=== PATIENT | female | born 1950 | race American Indian/Alaskan Native ===

== ENCOUNTER 2016-03-05 05:54 | Day surgery (SDC) | payer MEDICARE ==
--- NOTE | 2016-03-02 10:20 | Anesthesia Consultation ---
Anesthesia Consult and Med Hx Date of service: 03/02/16 - Airway Anesthetic Teeth Evaluation: Poor ROM Head & Neck: Adequate Mental/Hyoid Distance: Adequate Mallampati Class: Class II Intubation Access Assessment: Probably Good - Pulmonary Exam CTA: Yes - Cardiac Exam Cardiac Exam: RRR - Pre-Operative Health Status ASA Pre-Surgery Classification: ASA4 Proposed Anesthetic Plan: General - Pulmonary Hx Smoking: Yes (STOPPED X 2 MONTHS-1/2PPD X 20 YRS) Hx Asthma: Yes Hx Respiratory Symptoms: Yes (history of lung CA. partial lung resection on left side) SOB: Yes Hx Sleep Apnea: No (ZAIDA PRE SCREEN LOW RISK) - Cardiovascular System Hx Hypertension: Yes (X 20 YRS) - Central Nervous System CVA: Yes (STATES "NO DEFICIT" , BUT WORDS SLURRED) Hx Back Pain: Yes (NECK PAIN TO LEFT ARM) - Gastrointestinal Hx Ulcer: Yes - Hematic Hx Anemia: Yes Hx Sickle Cell Disease: No (SC TRAIT ONLY) - Other Systems Hx Cancer: Yes (X 3 SITES, lung(left), uterine, breast(left))
[2016-03-02 10:31] LABS: Alanine Aminotransferase 36 units/L (7-56); Albumin/Globulin Ratio 1.1 %; Alkaline Phosphatase 89 units/L (35-129); Anion Gap 17 mmol/L; BUN/Creatinine Ratio 16.66; Bilirubin,Total 0.6 mg/dL (0.1-1.2); Blood Urea Nitrogen 15 mg/dL (7-17); Calcium 9.2 mg/dL (8.4-10.2); Carbon Dioxide 24 mmol/L (22-30); Chloride 101.4 mmol/L (98-107); Glucose 77 mg/dL (65-100); Hematocrit 34.6 % (30.3-42.9); Hemoglobin 11.2 gm/dl (10.1-14.3); Mean Corpuscular HGB Conc 32 % (30-34); Mean Corpuscular Volume 74 fl (79-97); Platelet Count 242 K/mm3 (140-440); Red Blood Count 4.66 M/mm3 (3.65-5.03); Red Cell Distribution Width 17.2 % (13.2-15.2); Sodium 136 mmol/L (137-145); Total Protein 7.7 g/dL (6.3-8.2); White Blood Count 4.3 K/mm3 (4.5-11.0)
[2016-03-02 10:32] LABS: Mean Corpuscular Hemoglobin 24 pg (28-32)
[2016-03-02 10:40] LABS: Potassium TNR mmol/L (3.6-5.0)
[2016-03-02 11:16] LABS: Blastocytes % (Manual) 0 %
[2016-03-02 11:17] LABS: Acanthocytes 2+; Anisocytosis 1+; Burr Cells 1+; Diff Status Complete; Elliptocytes 1+; Helmet Cells Rare; Hypochromasia 1+; Microcytosis 1+; Ovalocytes 1+; Poikilocytosis 1+; Schistocytes Few
[2016-03-05] MEDS ORDERED: TRANSDERM-SCOP TD NR (06:00)
[2016-03-05] MEDS ORDERED: NACL 0.9% 1000 ML 1,000 ML IV SCH (06:00)
[2016-03-05] MEDS ORDERED: VERSED IV NR (06:00)
[2016-03-05] MEDS ORDERED: PEPCID PO NR (06:00)
[2016-03-05] MEDS ORDERED: SUBLIMAZE IV NR (06:30)
[2016-03-05] MEDS ORDERED: DILAUDID IV PRN (06:31)
[2016-03-05] MEDS ORDERED: NORCO 5/325 PO PRN (06:31)
[2016-03-05] MEDS ORDERED: ZOFRAN IV PRN (06:31)
[2016-03-05] MEDS ORDERED: DIPRIVAN 10 MG/ML IV ONE (07:01)
[2016-03-05] MEDS ORDERED: SUBLIMAZE ONE (07:02)
[2016-03-05] MEDS ORDERED: XYLOCAINE MPF 2% ONE (07:06)
[2016-03-05 07:22] LABS: Alanine Aminotransferase 23 units/L (7-56); Albumin 3.7 g/dL (3.9-5); Albumin/Globulin Ratio 1.2 %; Alkaline Phosphatase 77 units/L (35-129); Anion Gap 15 mmol/L; Bilirubin,Total 0.5 mg/dL (0.1-1.2); Blood Urea Nitrogen 15 mg/dL (7-17); Calcium 8.9 mg/dL (8.4-10.2); Carbon Dioxide 25 mmol/L (22-30); Chloride 102.3 mmol/L (98-107); Glucose 84 mg/dL (65-100); Potassium 4.2 mmol/L (3.6-5.0); Sodium 138 mmol/L (137-145); Total Protein 6.7 g/dL (6.3-8.2)
[2016-03-05] MEDS ORDERED: ZEMURON IV ONE (07:57)
[2016-03-05] MEDS ORDERED: XYLOCAINE 1% 20 mL ONE (08:00)
[2016-03-05] MEDS ORDERED: MARCAINE-EPI 0.5%-1:200,000 INFILTRATI ONE (08:00)
[2016-03-05] MEDS ORDERED: ANCEF/STERILE WATER 2 GM/20 ML IV NR (08:00)
[2016-03-05] MEDS ORDERED: BLOXIVERZ ONE (08:12)
[2016-03-05] MEDS ORDERED: ROBINUL ONE (08:13)
[2016-03-05] MEDS ORDERED: ZOFRAN ONE (08:14)
[2016-03-05] MEDS ORDERED: ADRENALIN IV ONE (08:15)
[2016-03-05] MEDS ORDERED: NACL 0.9% IR ONE ×2 (08:16)
--- NOTE | 2016-03-05 09:07 | Short Stay Summary ---
Short Stay Documentation - Allergies and Medications Current Medications: Allergies Iodinated Contrast Media - IV Dye Allergy (Verified 03/01/16 13:51) Shortness of Breath Home Medications Medication Instructions Recorded Confirmed Last Taken Type AtorvaSTATin [Lipitor] 20 mg PO QHS 03/02/16 03/05/16 03/04/16 21:00 History HYDROcodone/APAP 7.5-325 [Adkins 1 tab PO PRN PRN 03/02/16 03/05/16 03/04/16 20: 00 History 7.5-325 mg TAB] Ipratropium/Albuterol Sulfate 1 spray IH PRN PRN 03/02/16 03/05/16 03/04/16 21: 00 History [Combivent Respimat] Lisinopril [Zestril] 20 mg PO QDAY 03/02/16 03/05/16 03/05/16 05:00 History Multivit-Min/Iron/Folic/Lutein 1 tab PO DAILY 03/02/16 03/05/16 03/04/16 09:00 History [Centrum Silver Women Tablet] Zolpidem [Ambien] 5 mg PO QHS PRN 03/02/16 03/05/16 03/04/16 21:00 History traMADol [Ultram] 50 mg PO Q6HR PRN 03/02/16 03/05/16 03/04/16 20:00 History oxyCODONE /ACETAMINOPHEN [Percocet 1 - 2 tab PO Q4HR PRN #30 tab 03/05/16 Unknown Rx 5/325] Active Medications Acetaminophen/Hydrocodone Bitart (Adkins 5/325) 2 each PO ONCE PRN PRN Reason: Pain, Moderate (4-6) Stop: 03/05/16 16:00 Cefazolin Sodium (Ancef/Sterile Water 2 Gm/20 Ml) 2 gm IV PREOP NR Stop: 03/05/16 23:59 Famotidine (Pepcid) 20 mg PO PREOP NR Stop: 03/05/16 23:59 Last Admin: 03/05/16 06:35 Dose: 20 mg Fentanyl (Sublimaze) 100 mcg IV ONCE NR Stop: 03/05/16 23:59 Last Admin: 03/05/16 06:50 Dose: 50 mcg Hydromorphone HCl (Dilaudid) 0.5 mg IV Q10MIN PRN PRN Reason: Pain , Severe (7-10) Stop: 03/05/16 18:00 Sodium Chloride (Nacl 0.9% 1000 Ml) 1,000 mls @ 100 mls/hr IV DIRECT STIVEN Last Admin: 03/05/16 06:40 Dose: 100 mls/hr Midazolam HCl (Versed) 2 mg IV PREOP NR Stop: 03/05/16 23:59 Last Admin: 03/05/16 06:50 Dose: 1 mg Ondansetron HCl (Zofran) 4 mg IV ONCE PRN PRN Reason: Nausea And Vomiting Stop: 03/05/16 18:00 Scopolamine (Transderm-Scop) 1 each TD PREOP NR Stop: 03/08/16 05:59 Last Admin: 03/05/16 06:35 Dose: 1 each - Brief post op/procedure progress note Date of procedure: 03/05/16 Pre-op diagnosis: persistent left shoulder pain, AC joint arthritis, partial rotator cuff tea Post-op diagnosis: other (persistent left shoulder pain, AC joint arthritis, partial rotator cuff tear, extensive subacromial bursitis, degenerative tear anterior and superior labrum) Procedure: left shoulder arthroscopy, subaromial decompression, distal clavicle excision, debriedment of extensive subacromial bursitis, debriedment of partial rotator cuff tear, debriedment of degenerative wear of anterior and superior labrum Anesthesia: GETA Findings: as above Surgeon: LONI LEY Estimated blood loss: minimal Pathology: none Condition: stable - Hospital course Hospital course: stable - Disposition Condition at discharge: Stable Disposition: DISCHARGED TO HOME OR SELFCARE Short Stay Discharge Plan Prescriptions: oxyCODONE /ACETAMINOPHEN [Percocet 5/325] 1 - 2 tab PO Q4HR PRN #30 tab PRN Reason: Analgesia
[2016-03-05] MEDS: LOPRESSOR IV NR (09:26)
--- NOTE | 2016-03-05 10:17 | Post Anesthesia Evaluation ---
- Post Anesthesia Evaluation Patient Participated: Yes Airway Patent: Yes Stable Respiratory Function: Yes Temp > 96.8F: Yes Pain Manageable: Yes (pain free in PACU) Adequeate Hydration: Yes Anesthesia Complications: No Block Receding Appropriately: Not Applicable
--- NOTE | 2016-03-05 10:17 | Anesthesia Day of Surgery ---
Anesthesia Day of Surgery - Day of Surgery Patient Examined: Yes Patient H&P Reviewed: Yes Patient is NPO: Yes
[2016-03-05 10:36] VITALS: BP 163/84
[2016-03-05] MEDS ORDERED: PERCOCET 5/325 PO NR (10:52)
--- NOTE | 2016-03-05 12:50 | Operative Report ---
PREOPERATIVE DIAGNOSES: Persistent left shoulder pain, acromioclavicular joint arthritis, partial thickness rotator cuff tear, possible anterior labral tear. POSTOPERATIVE DIAGNOSES: Persistent left shoulder pain, advanced acromioclavicular joint arthritic changes causing severe impingement upon the rotator cuff, degenerative wear/tearing of the anterior and superior labrum, extensive subacromial bursitis, partial thickness articular-sided rotator cuff tear involving the supraspinatus tendon. OPERATIVE PROCEDURE: Left shoulder arthroscopy, subacromial decompression, distal clavicle excision, debridement of extensive subacromial bursitis, debridement of degenerative wear/tearing of the anterior and superior labrum, debridement of partial thickness articular-sided rotator cuff tear involving the supraspinatus tendon. SURGEON: Fred Martin MD CAN INSPECTOR: Madisyn Bailey CSA. ANESTHESIA: General plus interscalene block to the operative left upper extremity. ESTIMATED BLOOD LOSS: Minimal, less than 50 mL. OPERATIVE SPECIMEN: None. OPERATIVE COMPLICATIONS: None. OPERATIVE INSTRUMENTS/HARDWARE: None. OPERATIVE HISTORY AND PHYSICAL: This is a 65-year-old female who is right-hand dominant, who has had persistent progressively worsening left shoulder pain for several months' time. The pain was markedly worsening despite excessive nonoperative treatment that was markedly limiting her day-to-day activities. MRI scan was performed, which was positive for acromioclavicular joint arthritic changes, partial rotator cuff tear, possible anterior labral tear. The patient's MRI findings and diagnosis were discussed at length. Treatment alternatives were discussed, surgical and nonsurgical including risks and benefits of both. After a long lengthy discussion, the patient opted to proceed with operative intervention. This would entail a left shoulder arthroscopy, subacromial decompression, distal clavicle excision, possible rotator cuff repair, and surgery as indicated. The risk of which were discussed to include but not exclusive of infection, blood loss, nerve damage, loss of range of motion, and persistent pain. Again, the patient understood all of her questions answered and she wished to proceed with operative intervention. OPERATIVE PROCEDURE: The patient was seen in the preoperative chow room area, at which point informed consent was reviewed and appropriate left upper extremity was identified and then marked. The patient was then evaluated by Anesthesia and then interscalene block was performed. After confirmation of adequate analgesia of the left upper extremity, the patient was then brought back to the operating room and placed supine on a standard operating table. At which point, general anesthesia was administered and endotracheal tube was inserted. After confirmation of appropriate general anesthesia and checking appropriate placement of the endotracheal tube, we then made sure that all bony prominences were well padded. The patient was placed in thigh high SCD pumps to bilateral lower extremities. Padding was placed ____ bilateral thighs, placed in slight flexion at the hips and knees, making sure the popliteal fossa was free and clear. The heels were well padded. The patient was sat up in beach chair position using a beach chair position, which was already in place and her head was secured in a nice neutral position. Following that, the right upper extremity was then secured in neutral position as well. The left upper extremity was then examined under anesthesia. The patient was seen to have full range of motion without any gross evidence of instability. Following examination under anesthesia, the left upper extremity was then prepped and draped in the usual sterile fashion. After prepping and draping, a timeout was called and appropriate left upper extremity was identified, which again had been marked in the preoperative holding room area. We began our procedure by first making a standard posterior portal with #15 blade. Once the portal was established, the cannula with the blunt trocar was inserted into the intra-articular aspect of the glenohumeral joint. This went without difficulty or damage to articular cartilage. Once in place, arthroscopic camera was immediately placed in the anterior aspect of shoulder joint, we established anterior portal by first inserting an 18 gauge spinal needle between subscap and biceps tendon under direct arthroscopic visualization. Once confirmed to be in appropriate position, a 15 blade was then used to establish anterior portal. Once the portal was established, a blunt trocar was inserted via the port site. Following that, an arthroscopic probe, we began our diagnostic arthroscopy in the anterior aspect of the shoulder joint. The patient seen to have normal subscapularis tendon. A normal middle glenohumeral ligament, which was seen to be intact and stable when probed. Inspection of the glenohumeral joint showed there to be mild grade 1 articular cartilage of the central aspect of the glenoid. There was degenerative wear/tearing of the anterior and superior labrum. This was gently debrided using a 4.0 meniscal shaver. The attachment site; however, was seen to be intact and stable when probed. The posterior labrum was seen to be intact and stable when probed. Inspection of the axillary recess showed there were no loose bodies present. Inspection of the rotator cuff showed to be a partial thickness tearing of the supraspinatus tendon accomplished approximately 10% width of the tendon. This was gently debrided using a 4.0 meniscal shaver. Following this, the arthroscopic pump was turned off to make sure there was good hemostasis and once this was confirmed, the ____ fluid was suctioned from the glenohumeral joint using the arthroscopic cannula. Following this, all the arthroscopic instrumentation was removed from the glenohumeral joint and then placed in the subacromial space. Once in the subacromial space, we saw there was severe extensive subacromial bursitis. A third incision was made in the lateral aspect of the shoulder in line with lateral distal clavicle away from the axillary nerve. We performed debridement of the extensive subacromial bursitis using the 4.0 meniscal shaver and hemostasis was achieved with the Arthrocare ablation wand. Once completed, the arm was placed to full range of motion. We saw there was severe impingement of the rotator cuff upon the undersurfaces of both the acromion and the distal clavicle. The soft tissue was then removed from the surface of the acromion using the Arthrocare ablation wand and then using the 4.0 hooded barrel bur carried out a subacromial decompression going from inferior to superior, posterior and anterior making sure I did not leave any residual anterior hook. The coracoacromial ligament was also seemed to be markedly pathologic in thickening and caused a significant impingement and therefore, it was taken down, with careful attention to cauterize the acromial branch of the thoracoacromial artery. I turned our attention to the distal clavicle which was also seemed to be arthritic and contributing to impingement and a 4.0 hooded barrel bur was used to carry out distal clavicle excision here as well. Once completed, the arms again placed to full range of motion. I saw there was no further impingement of the rotator cuff upon undersurfaces of acromion or distal clavicle. I then inspected the bursal side of the rotator cuff that was seen to be intact and stable when probed. The arthroscopic pump was then turned off making sure there was good hemostasis. Once this was confirmed, ____ fluid was suctioned from the shoulder using the arthroscopic cannula. Following this, all the arthroscopic instrumentation was removed. The three portal sites were closed with 3-0 nylon in simple fashion. Adaptic, 4 x 4, ABD was applied along a sling with abduction pillow. The patient was sat down from the beach chair in a supine position, was awakened from general anesthesia without complications and taken to the recovery room in stable condition. Standard postoperative orders were written. [facility]# [id number] SAVANAH/TIERRA
== END 2016-03-05 11:30 | disposition home or self-care (01) ==
LOC: OR 05:54 → EDSEX 07:30 → OR 11:30
PROVIDERS: ATTEND Orthopaedic Surgery
DX: S46.012A Strain of muscle(s) and tendon(s) of the rotator cuff of left shoulder, initial encounter (principal); M19.012 Primary osteoarthritis, left shoulder; M75.52 Bursitis of left shoulder; J45.909 Unspecified asthma, uncomplicated; K21.9 Gastro-esophageal reflux disease without esophagitis; X58.XXXA Exposure to other specified factors, initial encounter; Y93.9 Activity, unspecified; Y92.9 Unspecified place or not applicable; Y99.9 Unspecified external cause status; Z87.891 Personal history of nicotine dependence; Z86.711 Personal history of pulmonary embolism; Z90.12 Acquired absence of left breast and nipple; D64.9 Anemia, unspecified; Z85.3 Personal history of malignant neoplasm of breast; Z85.118 Personal history of other malignant neoplasm of bronchus and lung; Z85.42 Personal history of malignant neoplasm of other parts of uterus; Z90.710 Acquired absence of both cervix and uterus
CPT/HCPCS: 29823; 29824; 36415; 80053; 85007; 85025; A4217; J0171; J0690; J1170; J2250; J2405; J2704; J2710; J3010; J7030; L1830